=== PATIENT | male | born 1990 | race Caucasian/White ===

== ENCOUNTER 2020-09-15 10:24 | Emergency (ER) | payer SELFPAY ==
[~2020-09-15] VITALS: Ht 175.3 cm; Wt 75.3 kg
[2020-09-15 10:29] VITALS: BP 146/92; Ht 175.3 cm; Wt 75.3 kg
== END 2020-09-15 12:23 | disposition home or self-care (01) ==
LOC: ED 10:24
DX: S61.217A Laceration without foreign body of left little finger without damage to nail, initial encounter (principal); W26.0XXA Contact with knife, initial encounter; Y93.89 Activity, other specified; Y92.89 Other specified places as the place of occurrence of the external cause; Y99.8 Other external cause status
CPT/HCPCS: 90715; J2001